=== PATIENT | female | born 2005 | race Hispanic/Latino ===

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

== ENCOUNTER 2024-12-14 12:53 | Emergency (ER) | payer OTHER, SELFPAY ==
[2024-12-14 13:10] VITALS: BP 115/71; PULSE 79; RESP 16; TEMP 36.4; O2SAT 99; BMI 23.6
[2024-12-14 13:59] LABS: Ictotest Urine Negative (Negative)
--- NOTE | 2024-12-14 14:40 | PC.NURSE ---
Pt reports lower pelvic pain, burning with urination, and near syncope since noon today. She was having a BM today and while sitting on the toilet felt nauseous, sweaty and like she might pass out. She was able to get out of the bathroom and rest. NO LOC. Denies any injuries. Denies recent illness, sick contacts, chest pain, and SOB.
--- NOTE | 2024-12-14 15:00 | ED_ITS ---
HPI - Female Genitourinary <Isma Rachel MD - Last Filed: 12/14/24 16:14> General Chief complaint: Urogenital-Female Stated complaint: pain in uterine area, blacked out from pain Time Seen by Provider: 12/14/24 13:01 Source: patient Mode of arrival: Ambulatory History of Present Illness HPI Narrative: 18-year-old female previously healthy here with midline pelvic pain. Onset approximately 3 hours prior to being seen, had limited nausea no vomiting has not had fevers. No changes in her bowel habits. Does have some dysuria no flank pain. Patient is sexually active uses condoms has only her normal vaginal discharge. Related Data Previous Rx's Medication Instructions Recorded ondansetron 4 mg disintegrating 4 mg PO Q8H PRN nausea and 06/18/20 tablet vomiting #10 tabs Allergies Allergy/AdvReac Type Severity Reaction Status Date / Time No Known Drug Allergies Allergy Verified 06/18/20 15:41 Patient History <Isma Rachel MD - Last Filed: 12/14/24 16:14> Medical History (Updated 12/14/24 @ 18:19 by Beverly Watters DO) Patient denies medical problems Exam <Isma Rachel MD - Last Filed: 12/14/24 16:14> Initial Vital Signs Initial Vital Signs: Vital Signs Temperature 97.5 F L 12/14/24 13:10 Pulse Rate 79 12/14/24 13:10 Respiratory Rate 16 12/14/24 13:10 Blood Pressure 115/71 12/14/24 13:10 Pulse Oximetry 99 12/14/24 13:10 Oxygen Delivery Method Room Air 12/14/24 13:10 Vital signs are normal Const Other: Appears well Resp Other: Normal effort Cardio Other: Normal rate GI Other: Abdomen is soft with suprapubic tenderness no guarding Skin Other: Warm and dry Neuro Other: Alert and fully oriented no deficits <Beverly Watters DO - Last Filed: 12/14/24 19:08> Initial Vital Signs Initial Vital Signs: Vital Signs Temperature 97.5 F L 12/14/24 13:10 Pulse Rate 79 12/14/24 13:10 Respiratory Rate 16 12/14/24 13:10 Blood Pressure 115/71 12/14/24 13:10 Pulse Oximetry 99 12/14/24 13:10 Oxygen Delivery Method Room Air 12/14/24 13:10 Course <Isma Rachel MD - Last Filed: 12/14/24 16:14> Orders Ordered: ED Orders 12/14/24 13:49 Chlamydia Gonorrhea PCR -URINE Stat Ictotest Urine Stat Urine Culture Stat Urine Microscopic Stat 12/14/24 16:11 US pelvic complete Stat 12/14/24 16:31 CBC Auto Diff [Complete Blood Count AUTO DIFF] Stat CMP [Comprehensive Metabolic Panel] Stat Ondansetron HCl (Ondansetron 4 Mg Odt) 4 mg SL NOW PRN PRN Reason: Nausea And Vomiting Reevaluation(s) Reevaluation #1: Patient was this that she is still having some low midline abdominal/pelvic pain she has not anorexic. While she has had some urinary symptoms, she does not have a urinalysis that suggests infection. We discussed further evaluation at this point, offer the option of symptomatic care and recheck if symptoms persist versus labs and ultrasound for appendicitis and gynecologic ultrasound. The patient prefer to have labs and ultrasound done. Vital Signs Vital signs: Vital Signs - 8 hr 12/14/24 13:10 12/14/24 17:41 Temperature 97.5 F L Pulse Rate 79 82 Respiratory Rate 16 18 Blood Pressure 115/71 116/59 L Pulse Oximetry 99 97 Oxygen Delivery Method Room Air Room Air <Beverly Watters DO - Last Filed: 12/14/24 19:08> Orders Ordered: ED Orders 12/14/24 13:49 Chlamydia Gonorrhea PCR -URINE Stat Ictotest Urine Stat Urine Culture Stat Urine Microscopic Stat 12/14/24 16:11 US pelvic complete Stat 12/14/24 16:31 CBC Auto Diff [Complete Blood Count AUTO DIFF] Stat CMP [Comprehensive Metabolic Panel] Stat Ondansetron HCl (Ondansetron 4 Mg Odt) 4 mg SL NOW PRN PRN Reason: Nausea And Vomiting Vital Signs Vital signs: Vital Signs - 8 hr 12/14/24 13:10 12/14/24 17:41 Temperature 97.5 F L Pulse Rate 79 82 Respiratory Rate 16 18 Blood Pressure 115/71 116/59 L Pulse Oximetry 99 97 Oxygen Delivery Method Room Air Room Air MDM - Female Genitourinary <Isma Rachel MD - Last Filed: 12/14/24 16:14> Lab Data Lab results narrative: Urine test is negative, urine dipstick is positive for protein no nitrites or leukocyte esterase urine was sent for micro 12/14/24 16:31 12/14/24 16:31 Labs: Lab Results 12/14/24 12/14/24 Range/Units 13:49 16:31 WBC 7.8 (4.5-11.0) X10^3/uL RBC 4.51 (4.0-5.2) X10^6/uL Hgb 14.5 (12.0-16.0) g/dL Hct 42.1 (36-46) % MCV 93.4 (80-100) fL MCH 32.3 (26-34) PG MCHC 34.5 (30-36) % RDW 13.7 (11.6-14.8) % Plt Count 230 (150-400) X10^3/uL Neut % (Auto) 75.4 H (50-75) % Lymph % (Auto) 18.7 L (25-40) % [place] % (Auto) 4.7 (3-14) % Eos % (Auto) 0.8 L (2-4) % Baso % (Auto) 0.4 (0-2) % Neut # (Auto) 5900 (0781-1885) /uL Lymph # (Auto) 1500 (9739-8920) /uL [place] # (Auto) 400 (0-900) /uL Eos # (Auto) 100 (0-450) /uL Baso # (Auto) 0 (0-100) /uL Sodium 139 (137-145) mmol/L Potassium 4.5 (3.4-5.1) mmol/L Chloride 102 (98-107) mmol/L Carbon Dioxide 24 (22-32) mmol/L BUN 14 (7-17) mg/dL Creatinine 0.60 (0.52-1.04) mg/dL Estimated GFR > 60 (>60) mL/min BUN/Creatinine Ratio 23.3 H (6-22) Glucose 96 (70-100) mg/dL Calcium 9.7 (8.4-10.2) mg/dL Total Bilirubin 0.9 (0.2-1.3) mg/dL AST 26 (14-36) IU/L ALT 17 (<35) IU/L Alkaline Phosphatase 47 (38-126) U/L Total Protein 8.4 H (6.3-8.2) g/dL Albumin 5.1 H (3.5-5.0) g/dL Globulin 3.3 (1.7-4.1) g/dL Albumin/Globulin Ratio 1.5 (1.0-2.8) Ur Bilirubin Confirm Negative (Negative) Urine RBC None seen (0-5/HPF) Urine WBC None seen (0-5/HPF) Ur Squamous Epith Cells 1-5 /hpf (0-5/HPF) Amorphous Sediment 4+ Urine Bacteria None seen (None) Hyaline Casts 5-10/lpf (None) Vol Urine Centrifuged 10ml (unspun) A Ur Chlamydia DNA (PCR) Not detected N gonorrhoeae DNA (PCR) Not detected Point of Care Testing Test Results Negative Urine Dip Bedside Urine Glucose Negative Bedside Urine Bilirubin + 1 Bedside Urine Ketone - Negative Urine Specific [place] 1.030 Bedside Urine Occult Blood - Negative Bedside Urine pH 5.5 Bedside Urine Protein +/- 15 Bedside Urine Urobilinogen - Negative Bedside Urine Nitrite - Negative Bedside Urine Leukocytes - Negative Esterase <Beverly Watters, DO - Last Filed: 12/14/24 19:08> Lab Data Labs: Lab Results 12/14/24 12/14/24 Range/Units 13:49 16:31 WBC 7.8 (4.5-11.0) X10^3/uL RBC 4.51 (4.0-5.2) X10^6/uL Hgb 14.5 (12.0-16.0) g/dL Hct 42.1 (36-46) % MCV 93.4 (80-100) fL MCH 32.3 (26-34) PG MCHC 34.5 (30-36) % RDW 13.7 (11.6-14.8) % Plt Count 230 (150-400) X10^3/uL Neut % (Auto) 75.4 H (50-75) % Lymph % (Auto) 18.7 L (25-40) % [place] % (Auto) 4.7 (3-14) % Eos % (Auto) 0.8 L (2-4) % Baso % (Auto) 0.4 (0-2) % Neut # (Auto) 5900 (4125-4723) /uL Lymph # (Auto) 1500 (9670-3455) /uL [place] # (Auto) 400 (0-900) /uL Eos # (Auto) 100 (0-450) /uL Baso # (Auto) 0 (0-100) /uL Sodium 139 (137-145) mmol/L Potassium 4.5 (3.4-5.1) mmol/L Chloride 102 (98-107) mmol/L Carbon Dioxide 24 (22-32) mmol/L BUN 14 (7-17) mg/dL Creatinine 0.60 (0.52-1.04) mg/dL Estimated GFR > 60 (>60) mL/min BUN/Creatinine Ratio 23.3 H (6-22) Glucose 96 (70-100) mg/dL Calcium 9.7 (8.4-10.2) mg/dL Total Bilirubin 0.9 (0.2-1.3) mg/dL AST 26 (14-36) IU/L ALT 17 (<35) IU/L Alkaline Phosphatase 47 (38-126) U/L Total Protein 8.4 H (6.3-8.2) g/dL Albumin 5.1 H (3.5-5.0) g/dL Globulin 3.3 (1.7-4.1) g/dL Albumin/Globulin Ratio 1.5 (1.0-2.8) Ur Bilirubin Confirm Negative (Negative) Urine RBC None seen (0-5/HPF) Urine WBC None seen (0-5/HPF) Ur Squamous Epith Cells 1-5 /hpf (0-5/HPF) Amorphous Sediment 4+ Urine Bacteria None seen (None) Hyaline Casts 5-10/lpf (None) Vol Urine Centrifuged 10ml (unspun) A Ur Chlamydia DNA (PCR) Not detected N gonorrhoeae DNA (PCR) Not detected Point of Care Testing Test Results Negative Urine Dip Bedside Urine Glucose Negative Bedside Urine Bilirubin + 1 Bedside Urine Ketone - Negative Urine Specific [place] 1.030 Bedside Urine Occult Blood - Negative Bedside Urine pH 5.5 Bedside Urine Protein +/- 15 Bedside Urine Urobilinogen - Negative Bedside Urine Nitrite - Negative Bedside Urine Leukocytes - Negative Esterase MDM Narrative Medical decision making narrative: 18-year-old female with lower pelvic pain initially seen by Dr. Rachel, patient signed out to myself while workup is pending. Patient had labs, urine including urine GC which not show any clear source of infection or changes pelvic ultrasound shows left ovarian simple cyst. Ultrasound was ordered to evaluate for appendix but is not noted in report. Discussed findings with patient. On exam patient is nontender. After discussion my suspicion for appendicitis is fairly low. We discussed it was not visualized if she was increasing pain she should return for repeat evaluation and imaging as her appendix was not visualized today. Patient feels comfortable with this plan she states her pain is fairly low she describes it feeling like a light ache. Labs show normal white count hemoglobin and platelets, chemistries are appropriate Point of care is negative, urine does not show any obvious sign of infection. Ultrasound pelvic shows left ovarian simple cyst. Urine gonorrhea chlamydia is negative. Discharge Plan Departure Patient Disposition: Home Clinical Impression: Cyst of left ovary Instructions: DI for Ovarian Cyst Activity Restrictions/Additional Instructions: Your workup today does show a left ovarian cyst that is 1.8cm in size these can sometimes cause pain. Your appendix was not visualized on your imaging. You can take Tylenol and/or ibuprofen as needed for pain If you have increasing right lower quadrant pain, fevers, vomiting or other new or concerning changes please return for re-evaluation. Prescriptions: No Action ondansetron 4 mg tablet,disintegrating 4 mg PO Q8H PRN (Reason: nausea and vomiting) Qty: 10 0RF Referrals: Carlos Villarreal MD [Primary Care Provider] - Stand Alone Forms: Patient Portal/API/Survey
[2024-12-14 15:59] LABS: Amorphous Sediment Urine 4+; Bacteria Urine None Seen; Hyaline Casts Urine 5-10/LPF; RBC Urine None Seen (0-5/HPF); Squamous Epithelial Cell Urine 1-5 /HPF (0-5/HPF); Urine Volume 10mL (unspun); WBC Urine None Seen (0-5/HPF)
--- NOTE | 2024-12-14 16:11 | DI.US.S_ITS ---
PROCEDURE: US PELVIC COMPLETE INDICATIONS: RIGHT PELVIC PAIN TECHNIQUE: Real-time scanning was performed of the pelvic organs, with image documentation. Additional endovaginal scanning was necessary due to incomplete visualization of the adnexal and endometrial structures by transabdominal scanning. COMPARISON: [facility], , US PELVIC COMPLETE, 06/18/2020, 17:11. FINDINGS: Uterus: Uterus is anteverted and normal in size at 8.0 x 3.6 x 4.9 cm. The myometrium is homogeneous. The endometrium measures 10.4 mm combined thickness. Ovaries: The right ovary measures 2.9 x 2.8 x 1.9 cm, with a calculated ovarian volume of 8.1 cc. The left ovary measures 2.8 x 2.2 x 3.0 cm, with a calculated ovarian volume of 9.9 cc. The ovaries have a normal sonographic appearance. Less than 12 follicles can be seen in each ovary. No adnexal masses are seen. Other: No pathologic free abdominal or pelvic fluid. IMPRESSION: Left ovarian simple cyst, 1.8 cm Approved by: Krishan Plasencia M.D. on 12/14/2024 at 16:58
[2024-12-14 16:38] LABS: Add Manual Diff / Slide Review NO; Basophils Absolute Auto 0 /uL (0-100); Basophils Percent Auto 0.4 % (0-2); Eosinophils Absolute Auto 100 /uL (0-450); Eosinophils Percent Auto 0.8 % (2-4); Hematocrit 42.1 % (36-46); Hemoglobin 14.5 g/dL (12.0-16.0); Lymphocytes Absolute Auto 1500 /uL (1100-4500); Lymphocytes Percent Auto 18.7 % (25-40); Mean Corpuscular HGB Conc 34.5 % (30-36); Mean Corpuscular Hemoglobin 32.3 PG (26-34); Mean Corpuscular Volume 93.4 fL (80-100); Monocytes Absolute Auto 400 /uL (0-900); Monocytes Percent Auto 4.7 % (3-14); Neutrophils Absolute Auto 5900 /uL (1500-7000); Neutrophils Percent Auto 75.4 % (50-75); Platelet Count 230 X10^3/uL (150-400); Red Blood Cell Count 4.51 X10^6/uL (4.0-5.2); Red Cell Distribution Width 13.7 % (11.6-14.8); White Blood Cell Count 7.8 X10^3/uL (4.5-11.0)
[2024-12-14 17:41] VITALS: BP 116/59; PULSE 82; RESP 18; O2SAT 97
[2024-12-14 17:47] LABS: Alanine Aminotransferase 17 IU/L (<35); Albumin 5.1 g/dL (3.5-5.0); Albumin Globulin Ratio 1.5 (1.0-2.8); Alkaline Phosphatase 47 U/L (38-126); Aspartate Aminotransferase 26 IU/L (14-36); BUN Creatinine Ratio 23.3 (6-22); Bilirubin Total 0.9 mg/dL (0.2-1.3); Blood Urea Nitrogen 14 mg/dL (7-17); Calcium 9.7 mg/dL (8.4-10.2); Carbon Dioxide 24 mmol/L (22-32); Chloride 102 mmol/L (98-107); Estimated Glomerular Filt Rate > 60 mL/min (>60); Globulin 3.3 g/dL (1.7-4.1); Glucose 96 mg/dL (70-100); HEMOLYSIS < 15 (0-50); Potassium 4.5 mmol/L (3.4-5.1); Sodium 139 mmol/L (137-145); Total Protein 8.4 g/dL (6.3-8.2)
[2024-12-14 18:33] LABS: Urine N gonorrhoeae NOT DETECTED
[2024-12-14 18:34] LABS: Urine Chlamydia NOT DETECTED
[2024-12-14 19:09] VITALS: BP 101/66; PULSE 78; RESP 18; TEMP 37.2; O2SAT 99
== END 2024-12-14 19:08 | disposition home or self-care (01) ==
PROVIDERS: Emergency Medicine; Emergency Provider Emergency Medicine; PCP Pediatrics Pediatric Emergency Medicine
DX: N83.202 Unspecified ovarian cyst, left side (principal)
CPT/HCPCS: 36415; 76830; 76856; 80053; 81003; 81015; 81025; 85025; 87086; 87491; 87591; 93975; 99282; 99284